=== PATIENT | male | born 1955 | race Caucasian/White ===

== ENCOUNTER 2017-01-26 13:34 | Emergency (ER) | payer BC ==
[~2017-01-26] VITALS: Ht 193 cm; Wt 139.1 kg
[~2017-01-26 13:34] MED LIST: ANUSOL-HC SUPPO25 MG RC; ASPIRIN 81M81 MG/TA2 PO; ATROVENT INHALE14 GM IH; AVAPRO; AVAPRO300 M1 PO; CRESTOR 10MG10 MG PO; FISH OIL500 MG PO; FLAGYL500 MG PO; HCTZ 25MG TAB25 MG PO; IBU800 M1 PO; LEVAQUIN 750MG750 M1 PO; LIPITOR20 MG PO; MOBIC 7.5MG7.5 MG PO; MOTRIN 800800 MG/TAB PO; MUCINEX1200 MG PO; MUCINEX600 M1 PO; MULTIPLE VITAMI1 CAP PO; NAPROSYN500 MG PO; NO HOME MEDICATIONS; OMEGA 3 PO; OMEGA-3 1450725 MG PO; PENTASA500 MG PO; PEPCID 20MG TAB20 MG PO; PERCOCET 325 MG1 TA2 PO; PHARMASSURE V PO; PHARMASSURE1000 MCG PO; PREDNISONE20 MG PO; PRILOSEC 20MG20 MG PO; PROVENTIL0.09 MG/A1 IH; SINGULAIR 110 MG/TAB PO; SPIRIVA INH; TYLENOL 500MG500 MG PO; VENTOLIN0.09 MG IH; VITAMIN D1000 IU PO; VITAMIN D2000 I1 PO; VITAMIN D32000 IU PO; ZITHROMAX 250M250 MG PO; ZITHROMAX Z PA250 MG PO
[2017-01-26 13:36] VITALS: BP 154/101; PULSE 90; TEMP 98.8
[2017-01-26] MEDS ORDERED: MULTI VITAMINS1 TAB PO (13:44)
[2017-01-26] MEDS ORDERED: PRILOSEC 20MG20 MG PO (13:45)
[2017-01-26] MEDS ORDERED: LIALDA 1.2 GM1.2 GM PO (13:45)
[2017-01-26] MEDS ORDERED: FLOMAX 0.40.4 MG/CAP PO (13:46)
[2017-01-26] MEDS ORDERED: TUSS PO (15:06)
[2017-01-26] MEDS ORDERED: PREDNISONE20 MG PO (15:06)
== END 2017-01-26 15:30 | disposition home or self-care (01) ==
LOC: COL.ER 13:34
DX: J44.1 Chronic obstructive pulmonary disease with (acute) exacerbation (principal); I10 Essential (primary) hypertension; Z87.891 Personal history of nicotine dependence
CPT/HCPCS: J7512

== ENCOUNTER 2017-02-02 06:52 | Emergency (ER) | payer BC ==
[~2017-02-02] VITALS: Ht 193 cm; Wt 139.1 kg
[~2017-02-02 06:52] MED LIST changes: +FLOMAX 0.40.4 MG/CAP PO; +LIALDA 1.2 GM1.2 GM PO; +MULTI VITAMINS1 TAB PO; +TUSS PO
[2017-02-02 06:55] VITALS: TEMP 98
[2017-02-02] MEDS ORDERED: EPA FISH OIL1 SGL PO (07:14)
[2017-02-02] MEDS ORDERED: ZITHROMAX 250M250 MG PO (07:19)
[2017-02-02] MEDS ORDERED: MEDROL 4MG DOSPA4 MG PO (07:19)
[2017-02-02 07:48] VITALS: BP 149/108; PULSE 66
== END 2017-02-02 07:48 | disposition home or self-care (01) ==
LOC: COL.ER 06:52
DX: J44.1 Chronic obstructive pulmonary disease with (acute) exacerbation (principal); Z79.82 Long term (current) use of aspirin; Z87.09 Personal history of other diseases of the respiratory system
CPT/HCPCS: J7512

== ENCOUNTER → 2017-05-22 | Outpatient (CLI) | payer BC ==
[~2017-05-22] VITALS: Ht 193 cm; Wt 137.3 kg
[~2017-05-22] MED LIST changes: +DOVONEX CR60 G2 TP; +EPA FISH OIL1 SGL PO; +GLUCOSAMINE, CH1 TAB PO; +MASON NATURAL2000 IU PO; +MEDROL 4MG DOSPA4 MG PO; +TEMOVATE0.051 TOP; -VITAMIN D32000 IU PO
[2017-05-22 07:01] VITALS: BP 140/99; PULSE 78
[2017-05-22 08:10] VITALS: BP 166/115; PULSE 69
[2017-05-22 08:23] VITALS: BP 145/94; PULSE 60
== END ==
LOC: COL.RAD 06:28
DX: M54.42 Lumbago with sciatica, left side (principal)
CPT/HCPCS: J3301

== ENCOUNTER → 2017-06-06 | Outpatient (CLI) | payer BC ==
[~2017-06-06] VITALS: Ht 193 cm; Wt 132.3 kg
[2017-06-06 07:39] VITALS: BP 122/99; PULSE 71
[2017-06-06 08:10] VITALS: BP 147/98; PULSE 65
== END ==
LOC: COL.RAD 07:00
DX: M54.42 Lumbago with sciatica, left side (principal)
CPT/HCPCS: J3301

== ENCOUNTER 2017-07-31 09:43 | Inpatient (IN) | payer BC ==
[~2017-07-31] VITALS: Ht 193 cm; Wt 135.5 kg
[2017-08-21] VITALS (10 sets, daily range): BP systolic 121–144; BP diastolic 76–89; PULSE 77–91; TEMP 97.8–98.3
[2017-08-21] MEDS ORDERED: FLOMAX 0.40.4 MG/CAP PO (10:18)
[2017-08-21] MEDS ORDERED: ALBUTEROL0.83 MG/ML IH (10:19)
[2017-08-21] MEDS ORDERED: ATROVENT INHALE14 GM IH (10:23)
[2017-08-22 01:23] VITALS: BP 141/85; PULSE 80; TEMP 98.5
[2017-08-22 05:27] VITALS: BP 144/89; PULSE 86; TEMP 97.5
[2017-08-22 07:01] LABS: HEMATOCRIT 41.7 % (42.0-52.0); HEMOGLOBIN 13.9 g/dl (13.5-18.0)
[2017-08-22 07:25] LABS: CALCIUM 8.1 mg/dL (8.4-10.2); CREATININE, serum 1.09 mg/dL (0.66-1.25); POTASSIUM 4.1 mmol/L (3.4-5.0)
[2017-08-22 10:00] VITALS: BP 140/81; PULSE 93; TEMP 98.5
[2017-08-22 13:22] VITALS: BP 135/85; PULSE 89; TEMP 98.3
[2017-08-22 17:05] VITALS: BP 126/68; PULSE 81; TEMP 98.2
[2017-08-22 21:14] VITALS: BP 131/79; PULSE 75; TEMP 98.3
[2017-08-23 01:10] VITALS: BP 128/75; PULSE 85; TEMP 98.3
[2017-08-23 05:05] VITALS: BP 121/81; PULSE 91; TEMP 98.2
[2017-08-23 09:37] VITALS: BP 124/81; PULSE 92; TEMP 98
[2017-08-23 13:16] VITALS: BP 130/79; PULSE 83; TEMP 98.4
== END 2017-08-23 16:59 | disposition home or self-care (01) | DRG 330 ==
LOC: INPTSU 08-21 08:54 → SURG 08-21 11:00
PROVIDERS: Surgery
PROC: 8E0W4CZ Robotic Assisted Procedure of Trunk Region, Percutaneous Endoscopic Approach (ICD-10-PCS; 2017-08-21)
PROC: 0DBN4ZZ Excision of Sigmoid Colon, Percutaneous Endoscopic Approach (ICD-10-PCS; principal; 2017-08-21 11:00)
DX: K50.10 Crohn's disease of large intestine without complications (principal); K57.32 Diverticulitis of large intestine without perforation or abscess without bleeding; I10 Essential (primary) hypertension; J45.909 Unspecified asthma, uncomplicated
CPT/HCPCS: A4314; A9284; J0360; J0690; J1100; J1650; J1885; J2370; J2405; J2704; J2710; J2765; J3010; J7120

== ENCOUNTER 2018-03-03 10:00 | Outpatient (RCR) | payer BC ==
[~2018-03-03 10:00] MED LIST changes: +ALBUTEROL0.83 MG/ML IH
== END 2018-03-06 15:24 | disposition home or self-care (01) ==
LOC: MKS.ESL.PT 10:00
DX: M54.42 Lumbago with sciatica, left side (principal); G89.29 Other chronic pain

== ENCOUNTER 2019-04-22 19:36 | Emergency (ER) | payer BC ==
[~2019-04-22] VITALS: Ht 193 cm; Wt 127.3 kg
[2019-04-22 19:57] VITALS: TEMP 98.2
[2019-04-22 20:55] LABS: BASO # 0.1 (0.0-0.2); EOS # 0.2 (0.0-0.7); EOS % 2.7 % (0-4.0); GRAN # 3.8 (1.4-6.5); GRAN % 54.1 % (42.2-75.2); HEMATOCRIT 47.4 % (42.0-52.0); HEMOGLOBIN 15.8 g/dl (13.5-18.0); LYMPH # 2.2 (1.2-3.4); LYMPH % 31.7 % (20.0-51.0); MEAN CELL VOLUME 88 fl (80.0-100.0); MEAN CORPUSCULAR HEMOGLOBIN 29 pg (27.0-31.0); MEAN CORPUSCULAR HGB CONC 33 g/dl (33.0-37.0); MEAN PLATELET VOLUME 9.7 fl (7.4-10.4); MONO # 0.7 (0.1-0.6); MONO % 10.2 % (1.7-9.3); PLATELET COUNT 196 K/mm3 (130-400); RED BLOOD COUNT 5.41 M/mm3 (4.20-5.60); REDCELL DISTRIBUTION WIDTH-CV 13.5 % (11.5-14.5)
[2019-04-22 21:04] LABS: ALANINE AMINOTRANSFERASE 19 U/L (21-72); ALKALINE PHOSPHATASE 77 U/L (50-136); ANION GAP 7 mmol/L (7-16); AST,SGOT 25 U/L (15-37); BILIRUBIN,TOTAL 0.3 mg/dL (0.0-1.0); BLOOD UREA NITROGEN 19 mg/dL (9-20); CARBON DIOXIDE 28 mmol/L (22-30); CHLORIDE 105 mmol/L (98-107); CREATINE KINASE 70 U/L (55-170); CREATININE, serum 1.01 (0.66-1.25); GLUCOSE 85 mg/dL (74-106); INR 0.9 (0.8-3.0); LIPASE 63 U/L (23-300); POTASSIUM 3.9 mmol/L (3.4-5.0); PROTHROMBIN TIME 9.9 SECONDS (9.7-12.8); SODIUM 140 mmol/L (137-145)
[2019-04-22 21:12] LABS: D-DIMER < 200.00 ng/mLDDu (200-230)
[2019-04-22 21:18] LABS: TROPONIN-I < 0.012 ng/mL (0.000-0.035)
[2019-04-22 23:35] VITALS: BP 148/109; PULSE 59
== END 2019-04-22 23:35 | disposition home or self-care (01) ==
LOC: COL.ER 19:36
PROVIDERS: Emergency Medicine
DX: R07.89 Other chest pain (principal); R06.00 Dyspnea, unspecified; R03.0 Elevated blood-pressure reading, without diagnosis of hypertension; K21.9 Gastro-esophageal reflux disease without esophagitis; J44.9 Chronic obstructive pulmonary disease, unspecified; Z95.9 Presence of cardiac and vascular implant and graft, unspecified; Z87.891 Personal history of nicotine dependence
CPT/HCPCS: J2060

== ENCOUNTER 2019-04-29 17:40 | Observation (INO) | payer BC ==
[~2019-04-29] VITALS: Ht 193 cm; Wt 126.3 kg
[2019-04-29 18:11] LABS: BASO # 0.1 (0.0-0.2); EOS # 0.1 (0.0-0.7); EOS % 1.4 % (0-4.0); GRAN # 5.4 (1.4-6.5); GRAN % 60.5 % (42.2-75.2); HEMOGLOBIN 16.8 g/dl (13.5-18.0); LYMPH # 2.4 (1.2-3.4); LYMPH % 26.3 % (20.0-51.0); MEAN CELL VOLUME 86 fl (80.0-100.0); MEAN CORPUSCULAR HEMOGLOBIN 29 pg (27.0-31.0); MEAN CORPUSCULAR HGB CONC 34 g/dl (33.0-37.0); MEAN PLATELET VOLUME 9.6 fl (7.4-10.4); MONO % 10.5 % (1.7-9.3); PLATELET COUNT 220 K/mm3 (130-400); RED BLOOD COUNT 5.79 M/mm3 (4.20-5.60); REDCELL DISTRIBUTION WIDTH-CV 13.4 % (11.5-14.5)
[2019-04-29 18:22] LABS: ALANINE AMINOTRANSFERASE 18 U/L (21-72); ALBUMIN 4.5 gm/dL (3.5-5.0); ALKALINE PHOSPHATASE 101 U/L (50-136); ANION GAP 10 mmol/L (7-16); AST,SGOT 27 U/L (15-37); BILIRUBIN,TOTAL 0.4 mg/dL (0.0-1.0); BLOOD UREA NITROGEN 23 mg/dL (9-20); CALCIUM 9.1 mg/dL (8.4-10.2); CARBON DIOXIDE 27 mmol/L (22-30); CHLORIDE 104 mmol/L (98-107); CREATININE, serum 1.09 (0.66-1.25); GLUCOSE 82 mg/dL (74-106); POTASSIUM 3.9 mmol/L (3.4-5.0); SODIUM 141 mmol/L (137-145); TOTAL PROTEIN 7.9 gm/dL (6.4-8.2)
[2019-04-29] MEDS ORDERED: ASPIRIN 81M81 MG/TA2 PO (18:23)
[2019-04-29] MEDS ORDERED: VITAMIN D31000 I1 PO (18:24)
[2019-04-29] MEDS ORDERED: PEPCID AC20 MG PO (18:24)
[2019-04-29 18:36] LABS: TROPONIN-I < 0.012 ng/mL (0.000-0.035)
[2019-04-29] MEDS ORDERED: MEN'S ONE DAIL1 EACH PO (18:39)
--- NOTE | 2019-04-29 22:49 | NUR ---
Pt arrived to unit from ED with c/o SOB. Patient is here today with in room. Alert and oriented with VSS. Labs normal. Ambulatory in room by himself. Went to bathroom and denied SOB with this. Has IV to left AC, currently INT. Denies chest pain or any pain at this time. CAll light within reach, will continue to monitor.
[2019-04-29] MEDS ORDERED: GLUCOSAMINE 1000 PO (22:55)
[2019-04-29 23:13] VITALS: BP 129/87; PULSE 65; TEMP 97.4
[2019-04-30] VITALS (12 sets, daily range): BP systolic 116–162; BP diastolic 64–88; PULSE 54–70; TEMP 97.4–98.3
--- NOTE | 2019-04-30 03:51 | NUR ---
Pt sleeping in bed. Call light within reach, will continue to monitor
--- NOTE | 2019-04-30 09:00 | NUR ---
Patient alert and oriented, answers questions appropriately. See assessment. No c/o chest or jaw pain/pressure. No c/o epigastric distress. No c/o at this time.
--- NOTE | 2019-04-30 11:05 | NUR ---
To Endoscopy at this time.
--- NOTE | 2019-04-30 14:42 | NUR ---
Expanded Duty Dental Assistant met with patient and patient's , Sara (ph#[phone]) to discuss discharge planning. [place] of [place] with his . Patient sees Dr. Conte for primary care and obtains medications from [facility] with no difficulties. Patient states he has a nebulizer at home but no other DME. Patient is independent with ADLS and states he exercises at his home gym. Patient does not have Advance Directives and was not interested in setting up DPOA-HC at this time. Patient plans to return home upon discharge. SW will continue to follow as needed.
--- NOTE | 2019-04-30 20:20 | NUR ---
PATIENT RECEIVED A LATE TRAY, ATE WHAT HE COULD BEFORE HIS STOMACH STARTED FEELING FULL AND DISTENDED. MEDICATED WITH ATIVAN 0.5MG IV NOW FOR ANXIETY. UP AMBULATING IN HALLWAYS AT THIS TIME.
[2019-05-01 00:54] VITALS: BP 146/77; PULSE 62; TEMP 97.9
--- NOTE | 2019-05-01 01:01 | NUR ---
PATIENT REPORTS HE DIDN'T GET THE SHORT OF BREATH FEELING AFTER EATING LIKE HE DID AT HOME. AT THIS TIME IS RESTING IN BED, IS NPO FOR HIDA SCAN. IVF CONTINUE TO RIGHT WRIST.
--- NOTE | 2019-05-01 02:35 | NUR ---
Patient given IV Ativan per his request to help him "relax". Has been NPO since midnight for test this AM.
[2019-05-01 04:20] VITALS: BP 142/93; PULSE 60; TEMP 97.8
--- NOTE | 2019-05-01 06:00 | NUR ---
To radiology for Hida scan
--- NOTE | 2019-05-01 07:12 | NUR ---
REPORT FROM JANIS GARCIA.
--- NOTE | 2019-05-01 07:58 | NUR ---
[facility]
[2019-05-01 08:16] VITALS: BP 146/94; PULSE 55; TEMP 97.5
--- NOTE | 2019-05-01 08:50 | NUR ---
PT UP TO BR INDEPENDENTLY. PT DENIES PAIN AT THIS TIME. SCAN COMPLETE, PT IS CURRENTLY NPO. IV ATIVAN GIVEN ORDERED AND REQUESTED BY PATIENT.
[2019-05-01 11:02] LABS: BASO % 0.7 % (0.0-2.0); EOS # 0.1 (0.0-0.7); EOS % 1.8 % (0-4.0); GRAN # 4.2 (1.4-6.5); GRAN % 69.7 % (42.2-75.2); HEMATOCRIT 47.2 % (42.0-52.0); HEMOGLOBIN 15.6 g/dl (13.5-18.0); LYMPH # 1.2 (1.2-3.4); LYMPH % 19.9 % (20.0-51.0); MEAN CELL VOLUME 88 fl (80.0-100.0); MEAN CORPUSCULAR HEMOGLOBIN 29 pg (27.0-31.0); MEAN CORPUSCULAR HGB CONC 33 g/dl (33.0-37.0); MEAN PLATELET VOLUME 9.2 fl (7.4-10.4); MONO # 0.5 (0.1-0.6); MONO % 7.6 % (1.7-9.3); PLATELET COUNT 194 K/mm3 (130-400); RED BLOOD COUNT 5.37 M/mm3 (4.20-5.60); REDCELL DISTRIBUTION WIDTH-CV 13.2 % (11.5-14.5)
[2019-05-01 11:15] LABS: ALBUMIN 3.9 gm/dL (3.5-5.0); BILIRUBIN,TOTAL 0.6 mg/dL (0.0-1.0); CALCIUM 8.5 mg/dL (8.4-10.2); CREATININE, serum 0.91 (0.66-1.25); TOTAL PROTEIN 6.8 gm/dL (6.4-8.2)
[2019-05-01 11:22] VITALS: BP 150/95; PULSE 66; TEMP 98
[2019-05-01] MEDS ORDERED: XANAX 0.5MG0.5 MG PO (15:14)
--- NOTE | 2019-05-01 16:04 | NUR ---
DISCHARGE INSTRUCTIONS PROVIDED TO PT AND . QUESTIONS SOLICITED AND ANSWERED. INT DISCONTINUED. PT LEFT AMBULATORY TO FOLLOW UP WITH PRIMARY AND SURGEON AT A LATER DATE.
--- NOTE | 2019-05-01 16:23 | NUR ---
PT LEFT AMBULATORY.AFTER DISCHARGE.
== END 2019-05-01 16:25 | disposition home or self-care (01) ==
LOC: COL.ER 17:40 → SURG 21:39
PROVIDERS: Emergency Medicine; Physician Assistant; ADMIT Student in an Organized Health Care Education/Training Program
DX: K82.8 Other specified diseases of gallbladder (principal); R06.02 Shortness of breath; R10.11 Right upper quadrant pain; K63.89 Other specified diseases of intestine; K44.9 Diaphragmatic hernia without obstruction or gangrene; K21.9 Gastro-esophageal reflux disease without esophagitis; Z90.49 Acquired absence of other specified parts of digestive tract; Z79.899 Other long term (current) drug therapy; Z79.82 Long term (current) use of aspirin; Z87.891 Personal history of nicotine dependence; Z88.1 Allergy status to other antibiotic agents; Z88.6 Allergy status to analgesic agent; Z88.8 Allergy status to other drugs, medicaments and biological substances; G47.33 Obstructive sleep apnea (adult) (pediatric); I10 Essential (primary) hypertension; J44.9 Chronic obstructive pulmonary disease, unspecified; K81.1 Chronic cholecystitis
CPT/HCPCS: A9537; C9113; G0378; J1650; J2060; J2405; J2704; J2805; J7030; Q9967

== ENCOUNTER 2019-05-15 08:44 | Day surgery (SDC) | payer BC ==
[~2019-05-15] VITALS: Ht 193 cm; Wt 120.9 kg
[~2019-05-15 08:44] MED LIST changes: +GLUCOSAMINE 1000 PO; +MEN'S ONE DAIL1 EACH PO; +PEPCID AC20 MG PO; +VITAMIN D31000 I1 PO; +XANAX 0.5MG0.5 MG PO
[2019-05-15 09:30] VITALS: BP 140/86; PULSE 81; TEMP 97.5
[2019-05-15 10:50] VITALS: BP 127/91; PULSE 74; TEMP 97.9
--- NOTE | 2019-05-15 10:50 | NUR ---
Pt to GI bay 8 via cart from [facility]. Pt awake and alert. Pt ambulates to recliner with stand by assistance. Warm blanket provided. Muffin, water and juice given per pt request. in room. Pt denies pain or nausea. Will continue to monitor. Call light within reach.
[2019-05-15 11:05] VITALS: BP 126/95; PULSE 66
--- NOTE | 2019-05-15 11:05 | NUR ---
Pt continues to rest. Denies needs. Tolerating food and fluids without difficulties. Call light within reach.
[2019-05-15 11:20] VITALS: BP 132/81; PULSE 55
--- NOTE | 2019-05-15 11:20 | NUR ---
Pt resting. Denies needs. Call light within reach.
[2019-05-15 11:35] VITALS: BP 121/85; PULSE 62
--- NOTE | 2019-05-15 11:35 | NUR ---
Pt continues to rest. Denies needs. Call light within reach.
--- NOTE | 2019-05-15 11:40 | NUR ---
Discharge instructions reviewed. Pt voices understanding. IV site discontinued with all parts intact. Pt up to dress. Call light within reach.
--- NOTE | 2019-05-15 11:52 | NUR ---
Pt escorted to private car via wheel chair. Pt accompanied home by his .
== END 2019-05-15 11:52 | disposition home or self-care (01) ==
LOC: SDCO 08:44
DX: Z12.11 Encounter for screening for malignant neoplasm of colon (principal); K51.40 Inflammatory polyps of colon without complications; K52.9 Noninfective gastroenteritis and colitis, unspecified; K63.89 Other specified diseases of intestine; K57.30 Diverticulosis of large intestine without perforation or abscess without bleeding; I10 Essential (primary) hypertension; E78.00 Pure hypercholesterolemia, unspecified; J45.909 Unspecified asthma, uncomplicated; Z86.010 Personal history of colon polyps
CPT/HCPCS: J2704; J7030

== ENCOUNTER 2023-11-06 08:30 | Emergency (ER) | payer MEDICARE, BC ==
[~2023-11-06] VITALS: Ht 190.5 cm; Wt 112.7 kg
[2023-11-06 08:33] VITALS: TEMP 98
[2023-11-06] MEDS ORDERED: diphenhydrAMINE 50 MG/ML 1 ML VIAL IV ONE (08:45)
[2023-11-06] MEDS ORDERED: dexAMETHasone 10 MG/ML VIAL IV ONE (08:45)
[2023-11-06] MEDS ORDERED: EPIPEN 2-PAK1 MG/ML IM (09:25)
[2023-11-06 09:34] VITALS: BP 141/96; PULSE 56
== END 2023-11-06 09:34 | disposition home or self-care (01) ==
LOC: COL.ER 08:30
DX: T63.441A Toxic effect of venom of bees, accidental (unintentional), initial encounter (principal); Z87.891 Personal history of nicotine dependence
CPT/HCPCS: J1100